=== PATIENT | female | born 2000 | race Caucasian/White ===

== ENCOUNTER 2019-05-30 17:56 | Emergency (ER) | payer OTHER ==
[~2019-05-30] VITALS: Ht 157.5 cm; Wt 79.5 kg
[2019-05-30 18:11] VITALS: BP 128/71; TEMP 99.9
[2019-05-30] MEDS ORDERED: MULTI VITAMINS1 TAB PO (18:37)
[2019-05-30 19:41] VITALS: PULSE 82
== END 2019-05-30 19:41 | disposition home or self-care (01) ==
LOC: COL.ER 17:56
DX: S50.02XA Contusion of left elbow, initial encounter (principal); W09.8XXA Fall on or from other playground equipment, initial encounter
CPT/HCPCS: J1885